=== PATIENT | male | born 1975 ===

== ENCOUNTER 2019-11-15 23:38 | Emergency (ER) | payer OTHER ==
[2019-11-16 15:11] LABS: SARS-CoV-2 MS2 Positive; SARS-CoV-2 N Gene Negative; SARS-CoV-2 S Gene Negative; SARS-CoV-2 orf1ab Negative
== END 2019-11-16 00:54 | disposition home or self-care (01) ==
LOC: ERS 23:38
DX: R50.9 Fever, unspecified (principal); R53.83 Other fatigue; R51 Headache; Z20.828 Contact with and (suspected) exposure to other viral communicable diseases
CPT/HCPCS: 87635; 99283; U0003